=== PATIENT | female | born 1990 | race Caucasian/White ===

== ENCOUNTER 2023-02-23 15:22 | Emergency (ER) | payer OTHER ==
[~2023-02-23] VITALS: Ht 162.6 cm; Wt 74.8 kg
[2023-02-23] MEDS ORDERED: CLINDAMYCIN PHOSPHATE 600 MG/4 ML VIAL IM ONE (16:30)
--- NOTE | 2023-02-23 16:30 | NUR ---
Pt seen by MD for bedside eval. Safety measures in place. Will continue to monitor.
[2023-02-23] MEDS ORDERED: CLIN300C12 PO (16:37)
[2023-02-23] MEDS ORDERED: CLOT12CR TP (16:37)
[2023-02-23] MEDS ORDERED: CLINDAMYCIN HCL 300 MG CAPSULE ONE (16:53)
[2023-02-23] MEDS ORDERED: CLINDAMYCIN HCL 150 MG CAPSULE PO ONE (17:00)
--- NOTE | 2023-02-23 17:04 | NUR ---
Patient discharged to home in stable condition. Written and verbal after care instructions given. Patient verbalizes understanding of instructions. Stressed follow up or return to ER for worsening s/s.
[2023-02-23 17:29] VITALS: BP 126/76
== END 2023-02-23 17:29 | disposition home or self-care (01) ==
LOC: ER 15:22
DX: L53.9 Erythematous condition, unspecified (principal); L08.89 Other specified local infections of the skin and subcutaneous tissue; Z88.2 Allergy status to sulfonamides; Z79.2 Long term (current) use of antibiotics; Z79.899 Other long term (current) drug therapy
CPT/HCPCS: A4663; J3490